=== PATIENT | female | born 1995 | race Caucasian/White ===

== ENCOUNTER 2019-01-18 10:29 | Emergency (ER) | payer BC, MEDICAID ==
[~2019-01-18] VITALS: Ht 160 cm; Wt 59.1 kg
[2019-01-18 11:10] LABS: BASO % 0.7 % (0.0-1.0); EOS # 0.1 10^3/uL (0.0-0.5); EOS % 1.2 % (0.0-3.0); HEMATOCRIT 42.3 % (36.0-47.0); LYMPH # 1.3 10^3/uL (1.5-5.0); LYMPH % 21.4 % (24.0-44.0); MEAN CORPUSCULAR HEMOGLOBIN 29.3 pg (27.0-33.0); MEAN CORPUSCULAR HGB CONC 33.1 g/dl (32.0-36.5); MEAN CORPUSCULAR VOLUME 88.5 fl (80.0-96.0); MONO # 0.4 10^3/uL (0.0-0.8); MONO % 6.5 % (0.0-5.0); NEUTROPHILS # 4.2 10^3/uL (1.5-8.5); NEUTROPHILS % 69.4 % (36.0-66.0); PLATELET COUNT, AUTOMATED 282 10^3/uL (150-450); RED BLOOD COUNT 4.78 10^6/uL (4.00-5.40)
--- NOTE | 2019-01-18 12:19 | REP ---
FIRST TRIMESTER AND ENDOVAGINAL PROBE OB ULTRASOUND: 01/18/2019. CLINICAL HISTORY: 5 weeks , abdominal pain. FINDINGS: Transabdominal and endovaginal probe images were provided. The bladder was empty. Uterus is anteverted and measures 8.5 x 1.5 x 5.9 cm. Uterine contour is normal. There is no uterine mass. Endometrial cavity is centrally located and is thickened up to 13.3 mm, but no gestational sac or pseudogestational sac is suggested on transabdominal or endovaginal probes. No fluid in the endocervical canal. The right ovary is 1.8 x 2.5 x 2.1 cm. It has normal color and Doppler tracing with resistive index of 0.54. There is no fluid adjacent to that ovary. The left ovary is enlarged 4.3 x 4.1 x 3.7 cm. Within it is a 3.3 x 3.2 x 3.1 cm complex corpus luteum cyst consistent with a hemorrhagic corpus luteum. Trace of fluid adjacent. That adnexa does not have decidual type flow. There is no torsion of that left ovary. Doppler tracing shows resistive index of 0.59. Color flow is seen in the ovarian tissue. IMPRESSION: 1. Thickened endometrium without visible gestational sac or pseudogestational sac and no fluid in the endocervical canal. 2. Right ovary normal. The left ovary shows a hemorrhagic cyst likely hemorrhagic corpus luteum, 3.3 x 3.2 x 3.1 cm. Normal blood flow to both ovaries and Doppler tracing with normal resistive index. Trace free fluid only along the left ovary. Recommend followup with beta hCG and ultrasound at clinically appropriate interval. I do not have a beta hCG for today's examination available to me at the time of this dictation. Electronically Signed by Rodrigue Coppola MD 01/18/2019 07:55 P
[2019-01-18 14:01] LABS: CHLAMYDIA DNA AMPLIFICATION NEGATIVE (NEGATIVE); GC DNA AMPLIFICATION NEGATIVE (NEGATIVE)
[2019-01-18] MEDS ORDERED: PRENTAB9 PO (14:27)
[2019-01-18 14:36] VITALS: BP 137/70
== END 2019-01-18 14:37 | disposition home or self-care (01) ==
LOC: M ED 10:29
DX: Z32.01 Encounter for pregnancy test, result positive (principal); N83.202 Unspecified ovarian cyst, left side; N89.8 Other specified noninflammatory disorders of vagina

== ENCOUNTER → 2019-12-29 | Outpatient (REF) | payer OTHER ==
[~2019-12-29] MED LIST: PRENTAB9 PO
[2019-12-29 14:45] LABS: HEMATOCRIT 33.8 % (36.0-47.0); HEMOGLOBIN 11.4 g/dl (12.0-15.5); MEAN CORPUSCULAR HEMOGLOBIN 29.4 pg (27.0-33.0); MEAN CORPUSCULAR HGB CONC 33.7 g/dl (32.0-36.5); MEAN CORPUSCULAR VOLUME 87.1 fl (80.0-96.0); PLATELET COUNT, AUTOMATED 250 10^3/uL (150-450); RED BLOOD COUNT 3.88 10^6/uL (4.00-5.40); WHITE BLOOD COUNT 6.9 10^3/uL (4.0-10.0)
[2020-01-01 10:15] LABS: HEPATITIS B SURFACE ANTIGEN NEGATIVE (NEGATIVE); HIV 1&2 SCREEN CENTAUR NEGATIVE (NEGATIVE)
== END ==
LOC: M LAB REF 12:41
PROVIDERS: ATTEND Advanced Practice Midwife
DX: O36.80X0 Pregnancy with inconclusive fetal viability, not applicable or unspecified (principal)

== ENCOUNTER → 2020-01-02 | Outpatient (CLI) | payer OTHER ==
--- NOTE | 2020-01-02 19:02 | REP ---
INDICATION: DATING AND VIABILITY COMPARISON: None. TECHNIQUE: Transabdominal 1st trimester obstetrical ultrasound with color Doppler evaluation. FINDINGS: Ultrasound examination demonstrates a single live early intrauterine . Biometrical measurements correspond to 14 weeks 3 days gestational age with estimated date of delivery at 06/29/2020. heart rate equals 173 beats per minute. IMPRESSION: Single live intrauterine at 14 weeks 3 days gestational age. Complete anatomical assessment should be performed at 19-20 weeks. <Electronically signed by Sergio Max > 01/02/20 [id number]
== END ==
LOC: M RAD 10:49
PROVIDERS: ATTEND Advanced Practice Midwife
DX: O36.80X0 Pregnancy with inconclusive fetal viability, not applicable or unspecified (principal); Z3A.14 14 weeks gestation of pregnancy

== ENCOUNTER → 2020-02-19 | Outpatient (CLI) | payer OTHER ==
--- NOTE | 2020-02-19 12:03 | REP ---
INDICATION: ANATOMY COMPARISON: 01/02/2020 TECHNIQUE: Transabdominal obstetrical ultrasound with color Doppler evaluation. FINDINGS: Examination demonstrates a single live intrauterine in cephalic presentation. motion is identified by technologist. Placenta is noted anterior and grade 0 without evidence for placenta previa or abruption. Amniotic fluid volume is normal. Cervix measures 3.9 cm in length and appears closed.. Gestational age by LMP 21 weeks 2 days with PATRIA 06/29/2020. Gestational age by current measurements 20 weeks 6 days with PATRIA 07/02/2020. FHR equals 170 beats per minute. BPD: 4.9 cm 20 weeks 6 days HC: 18.6 cm 20 weeks 6 days AC: 15.5 cm 20 weeks 5 days FL: 3.4 cm 20 weeks 5 days HL: 3.3 cm 21 weeks 0 days HC/AC: 1.20 Estimated weight 373 grams (19thpercentile). Anatomical assessment demonstrates normal structures including cranium, choroid plexus, cavum, cerebellum/posterior fossa, facial features, lungs, diaphragm, stomach, cord insertion/three-vessel cord, kidneys/bladder, upper extremities and spine. Limited evaluation of the heart/ventricular outflow tracts and lower extremities. IMPRESSION: Single live intrauterine in cephalic presentation demonstrating appropriate estimated weight and growth. Anatomical limitations as noted above may warrant follow-up. Remainder of the examination is normal. <Electronically signed by Sergio Max > 02/19/20 [id number]
== END ==
LOC: M WHC 10:14
PROVIDERS: ATTEND Advanced Practice Midwife
DX: Z36.3 Encounter for antenatal screening for malformations (principal); Z3A.20 20 weeks gestation of pregnancy

== ENCOUNTER → 2020-03-19 | Outpatient (CLI) | payer OTHER ==
--- NOTE | 2020-03-20 04:03 | REP ---
INDICATION: F/U ANATOMY COMPARISON: 02/19/2020 TECHNIQUE: Transabdominal obstetrical ultrasound with color Doppler evaluation. FINDINGS: Examination demonstrates a single live intrauterine in cephalic presentation. motion is identified by technologist. Placenta is noted anterior and grade 2 without evidence for placenta previa or abruption. Amniotic fluid volume is normal. Cervix measures 3.5 cm in length and appears closed.. Gestational age by LMP 25 weeks 3 days with PATRIA 06/29/2020. Gestational age by current measurements 25 weeks 0 days with PATRIA 07/02/2020. FHR equals 158 beats per minute. Estimated weight 703 grams (12thpercentile). Anatomical assessment demonstrates normal structures including heart/ventricular outflow tracts and lower extremities. IMPRESSION: Single live intrauterine in cephalic presentation demonstrating appropriate estimated weight and growth. In conjunction with prior examination anatomical assessment is complete and normal. <Electronically signed by Sergio Max > 03/20/20 [id number]
== END ==
LOC: M WHC 09:54
PROVIDERS: ATTEND Advanced Practice Midwife
DX: Z34.92 Encounter for supervision of normal pregnancy, unspecified, second trimester (principal); Z3A.25 25 weeks gestation of pregnancy

== ENCOUNTER → 2020-04-09 | Outpatient (CLI) | payer OTHER ==
[2020-04-09 16:34] LABS: HEMATOCRIT 30.9 % (36.0-47.0); HEMOGLOBIN 10.2 g/dl (12.0-15.5); MEAN CORPUSCULAR HEMOGLOBIN 30.6 pg (27.0-33.0); MEAN CORPUSCULAR VOLUME 92.8 fl (80.0-96.0); PLATELET COUNT, AUTOMATED 217 10^3/uL (150-450); RED BLOOD COUNT 3.33 10^6/uL (4.00-5.40); WHITE BLOOD COUNT 9.1 10^3/uL (4.0-10.0)
== END ==
LOC: M WUC 09:51
PROVIDERS: ATTEND Advanced Practice Midwife
DX: Z34.02 Encounter for supervision of normal first pregnancy, second trimester (principal); Z3A.00 Weeks of gestation of pregnancy not specified

== ENCOUNTER → 2020-06-02 | Outpatient (REF) | payer OTHER | LOC: M LAB REF 11:12 | PROVIDERS: ATTEND Advanced Practice Midwife | DX: Z36.89 Encounter for other specified antenatal screening (principal); Z34.83 Encounter for supervision of other normal pregnancy, third trimester ==